=== PATIENT | female | born 1965 | race Caucasian/White ===

== ENCOUNTER 2020-02-28 13:20 | Emergency (ER) | payer OTHER ==
[2020-02-28 13:28] VITALS: RESP 18
[2020-02-28] MEDS ORDERED: ACET/COD 300 MG/30 MG STARTER PACK 6 TAB BTL PO STA (13:56)
[2020-02-28] MEDS ORDERED: MORPHINE SULFATE 4 MG/ML SYRINGE IM STA (13:56)
--- NOTE | 2020-02-28 13:56 | ED ---
Extremity Problem HPI - General Chief complaint: Extremity Problem,Nontraumatic Stated complaint: post surgical pain, rt leg Time Seen by Provider: 02/28/20 13:30 Source: patient Mode of arrival: wheelchair Limitations: no limitations - History of Present Illness Initial comments: Patient is a 54-year-old female presenting to the emergency department with a chief complaint of right leg pain. Patient is day 4 status post right knee arthroplasty by at [facility]. Patient states she was discharged with narcotic pain medication was not able to fill them at the pharmacy. States she called multiple times at the outpatient clinic and they have yet to resolve their issue. Patient reports she has been alternating between Tylenol Motrin with no significant improvement. Patient reports the leg continues to be hurting. States she has been otherwise doing conservative management with ice compress and keeping the leg in a knee brace as recommended. She denies any night sweats or chills. States the pain is sharp and is worse with even the slightest movement. - Related Data Home Medications Medication Instructions Recorded Confirmed No Known Home Medications 02/28/20 02/28/20 Allergies Allergy/AdvReac Type Severity Reaction Status Date / Time No Known Allergies Allergy Verified 02/28/20 15:08 Review of Systems ROS Statement: Those systems with pertinent positive or pertinent negative responses have been documented in the HPI. ROS Other: All systems not noted in ROS Statement are negative. Past Medical History Past Medical History: No Reported History History of Any Multi-Drug Resistant Organisms: None Reported Past Surgical History: Joint Replacement, Orthopedic Surgery Additional Past Surgical History / Comment(s): rt knee Past Psychological History: No Psychological Hx Reported Smoking Status: Current every day smoker Past Alcohol Use History: Occasional Past Drug Use History: None Reported General Exam Limitations: no limitations General appearance: alert, in no apparent distress Head exam: Present: atraumatic, normocephalic, normal inspection Eye exam: Present: normal appearance, PERRL, EOMI Pupils: Present: normal accommodation ENT exam: Present: normal exam, normal oropharynx, mucous membranes moist, TM's normal bilaterally, normal external ear exam Neck exam: Present: normal inspection. Absent: tenderness Respiratory exam: Present: normal lung sounds bilaterally. Absent: respiratory distress, wheezes, rales Cardiovascular Exam: Present: regular rate, normal rhythm, normal heart sounds Extremities exam: Present: normal inspection (Slight erythema on the right leg at the surgical repair site. No overlying cellulitic skin changes that would indicate an infection at this time. There is no discharge. The incision site seems to be healing well.), full ROM, tenderness (Tenderness at the incision sites around the knee.), normal capillary refill, other (+2 ulnar radial pulses bilateral. +2 dorsalis pedis and posterior tibials bilaterally.). Absent: pedal edema, joint swelling, calf tenderness Back exam: Present: normal inspection, full ROM. Absent: tenderness, CVA tenderness (R), CVA tenderness (L) Neurological exam: Present: alert, oriented X3 Psychiatric exam: Present: normal affect, normal mood Skin exam: Present: warm, dry, intact, normal color Course Vital Signs 02/28/20 02/28/20 13:24 16:19 Temperature 98.1 F 97.9 F Pulse Rate 48 L 60 Respiratory 18 18 Rate Blood Pressure 141/79 128/72 O2 Sat by Pulse 98 98 Oximetry Medical Decision Making - Medical Decision Making Patient 54-year-old feel presenting to the emergency department with a chief complaint of right leg pain. On physical examination, patient appears to have an inflamed right leg which does not appear to be infected at this time. She requested a dressing change due to some dry blood on the old dressing. new Dressing was applied. Patient was also given analgesia in the emergency department. CBC and CMP are unremarkable. Lactic acid is within normal limits. No active infection suspect that this time. X-ray is showing postsurgical changes but no signs of osteomyelitis. The hardware appears to be in place. Patient will be discharged with a Tylenol 3 starter pack. I attempted to call the orthopedic surgeon's office but it was closed. Strict return parameters were thoroughly discussed with patient was understanding and agreeable. Case discussed with physician. - Lab Data Result diagrams: 02/28/20 14:55 02/28/20 14:55 Lab Results 02/28/20 02/28/20 02/28/20 Range/Units 14:55 14:55 14:55 WBC 10.4 (3.8-10.6) k/uL RBC 3.82 (3.80-5.40) m/uL Hgb 11.6 (11.4-16.0) gm/dL Hct 36.1 (34.0-46.0) % MCV 94.4 (80.0-100.0) fL MCH 30.3 (25.0-35.0) pg MCHC 32.1 (31.0-37.0) g/dL RDW 13.7 (11.5-15.5) % Plt Count 321 (150-450) k/uL Neutrophils % 76 % Lymphocytes % 13 % Monocytes % 6 % Eosinophils % 3 % Basophils % 0 % Neutrophils # 7.9 H (1.3-7.7) k/uL Lymphocytes # 1.3 (1.0-4.8) k/uL Monocytes # 0.6 (0-1.0) k/uL Eosinophils # 0.3 (0-0.7) k/uL Basophils # 0.0 (0-0.2) k/uL Sodium 137 (137-145) mmol/L Potassium 3.5 (3.5-5.1) mmol/L Chloride 101 (98-107) mmol/L Carbon Dioxide 30 (22-30) mmol/L Anion Gap 6 mmol/L BUN 12 (7-17) mg/dL Creatinine 0.42 L (0.52-1.04) mg/dL Est GFR (CKD-EPI)AfAm >90 (>60 ml/min/1.73 sqM) Est GFR (CKD-EPI)NonAf >90 (>60 ml/min/1.73 sqM) Glucose 131 H (74-99) mg/dL Plasma Lactic Acid Steve 0.9 (0.7-2.0) mmol/L Calcium 8.9 (8.4-10.2) mg/dL Total Bilirubin 0.6 (0.2-1.3) mg/dL AST 21 (14-36) U/L ALT 14 (4-34) U/L Alkaline Phosphatase 92 (38-126) U/L Total Protein 6.3 (6.3-8.2) g/dL Albumin 3.6 (3.5-5.0) g/dL Disposition Clinical Impression: Postoperative pain of right knee Disposition: HOME SELF-CARE Condition: Stable Instructions (If sedation given, give patient instructions): Knee Pain (ED) Additional Instructions: Follow-up with your orthopedic surgeon. Return to emergency department if symptoms worsen. Is patient prescribed a controlled substance at d/c from ED?: No Referrals: Nonstaff,Physician [REFERRING] - 1-2 days Time of Disposition: 15:53
[2020-02-28] MEDS ORDERED: HYDROmorphone 1 MG/ML 1 ML SYRINGE IM STA (14:26)
[2020-02-28] MEDS ORDERED: HYDROmorphone 1 MG/ML 1 ML SYRINGE IVP STA (14:45)
--- NOTE | 2020-02-28 15:05 | XR ---
EXAMINATION TYPE: XR knee complete RT DATE OF EXAM: 02/28/2020 CLINICAL HISTORY: Pain and inflammation after recent surgery 4 days ago TECHNIQUE: Three views of the right knee are obtained. COMPARISON: None. FINDINGS: There is no acute fracture/dislocation evident in right knee. Metallic artifact from total right knee arthroplasty is satisfactory in position. Moderate diffuse subcutaneous edema remains pre sent with nonspecific scattered foci of subcutaneous air noted. Large suprapatellar joint effusion murphy spected, nonspecific finding. IMPRESSION: As above.
[2020-02-28 15:15] LABS: Basophils % (A) 0 %; Eosinophils # (A) 0.3 k/uL (0-0.7); Eosinophils % (A) 3 %; HCT 36.1 % (34.0-46.0); HGB 11.6 gm/dL (11.4-16.0); Lymphocytes # (A) 1.3 k/uL (1.0-4.8); Lymphocytes % (A) 13 %; MCH 30.3 pg (25.0-35.0); MCHC 32.1 g/dL (31.0-37.0); MCV 94.4 fL (80.0-100.0); Monocytes # (A) 0.6 k/uL (0-1.0); Monocytes % (A) 6 %; Neutrophils # (A) 7.9 k/uL (1.3-7.7); Neutrophils % (A) 76 %; Platelet Count 321 k/uL (150-450); RBC 3.82 m/uL (3.80-5.40); RDW 13.7 % (11.5-15.5); WBC 10.4 k/uL (3.8-10.6)
[2020-02-28 15:26] LABS: ALT 14 U/L (4-34); AST 21 U/L (14-36); African American GFR (CKD) >90 (>60 ml/min/1.73 sqM); Albumin 3.6 g/dL (3.5-5.0); Alkaline Phosphatase 92 U/L (38-126); Anion Gap 6 mmol/L; Blood Urea Nitrogen 12 mg/dL (7-17); Calcium 8.9 mg/dL (8.4-10.2); Carbon Dioxide 30 mmol/L (22-30); Chloride 101 mmol/L (98-107); Glucose 131 mg/dL (74-99); Non-African American GFR(CKD) >90 (>60 ml/min/1.73 sqM); Potassium 3.5 mmol/L (3.5-5.1); Sodium 137 mmol/L (137-145); Total Bilirubin 0.6 mg/dL (0.2-1.3); Total Protein 6.3 g/dL (6.3-8.2)
[2020-02-28 16:21] VITALS: BP 128/72; PULSE 60; TEMP 97.9
== END 2020-02-28 16:21 | disposition home or self-care (01) ==
LOC: EC 13:20
DX: G89.18 Other acute postprocedural pain (principal); M25.561 Pain in right knee; F17.200 Nicotine dependence, unspecified, uncomplicated; Z96.651 Presence of right artificial knee joint
CPT/HCPCS: 36415; 80053; 83605; 85025; 87040; 73562; 99283; 96374; 96372; J2270; J1170